=== PATIENT | female | born 1995 | race Caucasian/White ===

== ENCOUNTER 2017-04-28 23:14 | Emergency (ER) | payer MEDICAID ==
[2017-04-28 23:28] VITALS: PULSE 88; RESP 18; O2SAT 98
--- NOTE | 2017-04-28 23:52 | PD ---
HPI Chief Complaint: Seizure Time Seen by Provider: 23:36 Travel History International Travel<30 days: No Contact w/Intl Traveler<30days: No Traveled to known affect area: No History of Present Illness HPI 22yo F with PMH of developmental delays here with c/o what seemed like an episode of seizure. Pt's mother said she was sleeping in bed and then started shaking her bilateral arms and drooling. This lasted about 1 minute. Said she was confused after and looked like she had labored breathing for 2 minutes. Pt is back to her baseline mental status and behavior now. Denies any fever, trauma, vomiting, abdominal pain, recent illness or diarrhea. Pt has never had similar episodes or seizure before. Pt is nonverbal at baseline. PFSH Past Medical History Diminished Hearing: No Medical other: Yes (Down syndrome and autism) Integumentary: Yes (Alopecia) Tetanus Vaccination: > 5 Years Influenza Vaccination: No ?: Not LMP: 04/14/17 Past Surgical History Tonsillectomy: Yes Social History Alcohol Use: No Tobacco Use: No Substance Use: No Allergies-Medications (Allergen,Severity, Reaction): Coded Allergies: No Known Allergies (Unverified , 04/28/17) Reported Meds & Prescriptions Reported Meds & Active Scripts Active No Active Prescriptions or Reported Medications Review of Systems Except as stated in HPI: all other systems reviewed are Neg Physical Exam Narrative GENERAL: 22yo F not in distress. SKIN: Focused skin assessment warm/dry. HEAD: Atraumatic. Normocephalic. EYES: Pupils equal and round at 3mm bilaterally. ENT: No nasal bleeding or discharge. Mucous membranes pink and moist. NECK: Trachea midline. No JVD. CARDIOVASCULAR: Regular rate and rhythm. No murmur appreciated. RESPIRATORY: No accessory muscle use. Clear to auscultation. Breath sounds equal bilaterally. GASTROINTESTINAL: Abdomen soft, non-tender, nondistended. MUSCULOSKELETAL: No obvious deformities. No clubbing. No cyanosis. No edema. NEUROLOGICAL: Awake and alert. Nonverbal. Moving extremities but baseline not following command. Data Data Last Documented VS Vital Signs Date Time Temp Pulse Resp B/P (MAP) Pulse Ox O2 Delivery O2 Flow Rate FiO2 04/29/17 01:34 96 16 117/71 (86) 98 Room Air 04/29/17 00:[address] Brain W/O Iv Contrast(Rout) (2/13/18 ) Complete Blood Count With Diff (04/28/17 23:44) Basic Metabolic Panel (Bmp) (04/28/17 23:44) Blood Glucose (04/28/17 23:44) Chest, Single Ap (04/28/17 ) Midazolam Inj (Versed Inj) (04/29/17 00:00) Propofol 500 Mg/50 Ml Inj (Diprivan 500 (04/29/17 00:45) Labs Laboratory Tests Test 04/29/17 00:50 White Blood Count 9.3 TH/MM3 Red Blood Count 4.16 MIL/MM3 Hemoglobin 14.0 GM/DL Hematocrit 42.0 % Mean Corpuscular Volume 101.0 FL Mean Corpuscular Hemoglobin 33.6 PG Mean Corpuscular Hemoglobin Concent 33.3 % Red Cell Distribution Width 12.3 % Platelet Count 298 TH/MM3 Mean Platelet Volume 7.4 FL Neutrophils (%) (Auto) 71.5 % Lymphocytes (%) (Auto) 21.5 % Monocytes (%) (Auto) 5.7 % Eosinophils (%) (Auto) 0.3 % Basophils (%) (Auto) 1.0 % Neutrophils # (Auto) 6.7 TH/MM3 Lymphocytes # (Auto) 2.0 TH/MM3 Monocytes # (Auto) 0.5 TH/MM3 Eosinophils # (Auto) 0.0 TH/MM3 Basophils # (Auto) 0.1 TH/MM3 CBC Comment DIFF FINAL Differential Comment Blood Urea Nitrogen 13 MG/DL Creatinine 0.83 MG/DL Random Glucose 96 MG/DL Calcium Level 8.7 MG/DL Sodium Level 137 MEQ/L Potassium Level 4.2 MEQ/L Chloride Level 102 MEQ/L Carbon Dioxide Level 29.0 MEQ/L Anion Gap 6 MEQ/L Estimat Glomerular Filtration Rate 86 ML/MIN [facility] Medical Decision Making Medical Screen Exam Complete: Yes Emergency Medical Condition: Yes Differential Diagnosis Electrolyte abnormality vs. intracranial mass Narrative Course 22yo with severe developmental delay here for evaluation of what sounded like first time seizure. Pt initially given versed 2mg IM but was not able to do CT brain with just that. Discussed with parents and obtained consent to do procedural sedation in order to get CT brain. Labs reviewed, no leukocytosis. BMP unremarkable. CXR showed no acute disease. CT brain normal examination. Pt is back to baseline mental status. Instructed pt to follow up with neurology for evaluation of seizure work up as outpatient. Return precautions given. Procedures Procedure Narrative After the risks and benefits were discussed the following procedure was performed: MODERATE SEDATION: The patient was placed on a truck driver supervisor and pulse oximetry. An ambu bag and suction was immediately available at bedside. The patient was monitored by the nurse. Oxygen saturation , heart rate and blood pressure were monitored. Procedural sedation was acheived using 80mg of propofol. The patient was observed until awake and alert. Procedural Sedation time in attendance was 25 minutes. Diagnosis Primary Impression: Seizure Referrals: Romaine Jacques MD call for appointment New onset seizure Patient Instructions: General Instructions Departure Forms: Tests/Procedures Additional Instructions: Please follow up with neurology as soon as possible for further evaluation. Return to the ED if symptoms worsen. Med/Other Pt SpecificInfo: No Change to Meds Scripts No Active Prescriptions or Reported Meds Disposition: 01 DISCHARGE HOME Condition: Stable EsterMeche DO Apr 28, 2017 23:52
[2017-04-29] MEDS ORDERED: MIDAZOLAM HCL 2 MG/2 ML VIAL IM ONE
[2017-04-29 00:45] VITALS: O2SAT 100
[2017-04-29] MEDS ORDERED: PROPOFOL 500 MG/50 ML BTL IV ONE (00:45)
[2017-04-29 01:19] VITALS: PULSE 97; RESP 16; O2SAT 98
--- NOTE | 2017-04-29 01:25 | RADRPT ---
EXAM DATE/TIME: 04/29/2017 01:03 [facility] COMPARISON: No previous studies available for comparison. INDICATIONS : Seizure. Evaluate for tumor. RADIATION DOSE: 32.90 CTDIvol (mGy) MEDICAL HISTORY : None SURGICAL HISTORY : None. ENCOUNTER: Initial ACUITY: 1 day PAIN SCALE: 0/10 LOCATION: cranial TECHNIQUE: Multiple contiguous axial images were obtained of the head. Using automated exposure control and adj ustment of the mA and/or kV according to patient size, radiation dose was kept as low as reasonably a chievable to obtain optimal diagnostic quality images. DICOM format image data is available electro nically for review and comparison. FINDINGS: CEREBRUM: The ventricles are normal for age. No evidence of midline shift, mass lesion, hemorrhage or acute in farction. No extra-axial fluid collections are seen. POSTERIOR FOSSA: The cerebellum and brainstem are intact. The 4th ventricle is midline. The cerebellopontine angle i s unremarkable. EXTRACRANIAL: The visualized portion of the orbits is intact. SKULL: The calvaria is intact. No evidence of skull fracture. CONCLUSION: Normal examination. Dann Sapp MD on April 29, 2017 at 1:22 Board Certified Radiologist. This report was verified electronically.
[2017-04-29 01:28] LABS: AUTOMATED NEUTROPHIL # 6.7 TH/MM3 (1.8-7.7); BASOPHIL # 0.1 TH/MM3 (0-0.2); EOSINOPHIL % 0.3 % (0.0-4.0); LYMPH % 21.5 % (9.0-44.0); MEAN CORPUSCULAR HEMOGLOBIN 33.6 PG (27.0-34.0); MEAN CORPUSCULAR HGB CONC 33.3 % (32.0-36.0); MEAN PLATELET VOLUME 7.4 FL (7.0-11.0); MONO % 5.7 % (0.0-8.0); MONOCYTE # 0.5 TH/MM3 (0-0.9); NEUT % 71.5 % (16.0-70.0); PLATELET COUNT 298 TH/MM3 (150-450); RED BLOOD COUNT 4.16 MIL/MM3 (4.00-5.30); RED CELL DISTRIBUTION WIDTH 12.3 % (11.6-17.2); WHITE BLOOD COUNT 9.3 TH/MM3 (4.0-11.0)
[2017-04-29 01:30] LABS: CALCIUM 8.7 MG/DL (8.5-10.1)
[2017-04-29 01:34] VITALS: BP 117/71; PULSE 96; RESP 16; O2SAT 98
[2017-04-29 01:34] LABS: CREATININE 0.83 MG/DL (0.50-1.00)
--- NOTE | 2017-04-29 01:36 | RADRPT ---
EXAM DATE/TIME: 04/29/2017 01:15 [facility] COMPARISON: No previous studies available for comparison. INDICATIONS : Short of breath. Possible seizure. MEDICAL HISTORY : None. SURGICAL HISTORY : None. ENCOUNTER: Initial ACUITY: 1 day PAIN SCORE: Non-responsive. LOCATION: Bilateral chest FINDINGS: A single view of the chest demonstrates the lungs to be symmetrically aerated without evidence of mas s, infiltrate or effusion. The cardiomediastinal contours are unremarkable. Osseous structures are intact. CONCLUSION: No acute disease. Dann Sapp MD on April 29, 2017 at 1:34 Board Certified Radiologist. This report was verified electronically.
[2017-04-29 02:08] VITALS: TEMP 98.2
[2017-04-29 02:30] VITALS: BP 110/70
== END 2017-04-29 02:37 | disposition home or self-care (01) ==
LOC: PHED 23:14
DX: R56.9 Unspecified convulsions (principal); F84.0 Autistic disorder; Q90.9 Down syndrome, unspecified
CPT/HCPCS: 70450; 71045; 80048; 85025; 94770; 96372; 99152; 99153; 99285; J2250